=== PATIENT | male | born 1965 | race Caucasian/White ===

== ENCOUNTER 2024-10-01 08:30 | Outpatient (CLI) | payer OTHER, SELFPAY ==
--- NOTE | 2024-10-01 08:15 | DI.RAD_ITS ---
Exam(s) XR FOOT LT COMPLETE EXAM: XR FOOT LT COMPLETE CLINICAL HISTORY: Left foot pain M79.672 PAIN LEFT FOOT. TECHNIQUE: 2D digital imaging was performed of the left foot. Three images were obtained. AP, oblique and lateral views were obtained. COMPARISON: No exams were available for comparison FINDINGS: BONES: No acute fracture is present. No bony destructive lesion is seen. JOINTS: No dislocation present. The joint spaces are well maintained. SOFT TISSUE: Normal. IMPRESSION: Unremarkable radiographs of the left foot. DATA REPOSITORY: RADIATION DOSE DELIVERED:
== END 2024-10-01 08:50 ==
LOC: DI 08:32
PROVIDERS: Visit Provider Podiatrist
DX: M79.672 Pain in left foot (principal)
CPT/HCPCS: 73630